=== PATIENT | female | born 1950 ===

== ENCOUNTER 2016-10-26 06:08 | Day surgery (SDC) | payer MEDICARE ==
[2016-10-26 06:54] VITALS: BMI 28.1
[2016-10-26] MEDS ORDERED: Lactated Ringer's 500 ML IV ONE ×2 (08:37)
--- NOTE | 2016-10-26 08:43 | CP.SDSHP ---
Same Day Surgery H & P - History Proposed Procedure: colonoscopy Pre-Op Diagnosis: screening for colon cancer. family h/o colon cancer - Previous Medical/Surgical History Cardiac: Hypertension, Other (hyperlipidemia, cataracts, diabetic retinopathy) Endocrine/Metabolic: Diabetes, Obesity Previous Surgical History: x 3 - Allergies Allergies: Allergies No Known Allergies Allergy (Verified 10/26/16 06:53) - Physical Exam Vital Signs: Vital Signs 10/26/16 07:12 Temperature 97.5 F L Pulse Rate 90 Respiratory 20 Rate Blood Pressure 153/60 H O2 Sat by Pulse 99 Oximetry Mental Status: Alert & Oriented x3 Neuro: WNL Heart: WNL Lungs: WNL GI: WNL - Impression Impression: screening for colon cancer. family h/o colon cancer Pt. Evaluated Today:Candidate for Anesthesia & Procedure: Yes - Date & Time Date: 10/26/16 Time: 08:43 Short Stay Discharge - Short Stay Discharge Admitting Diagnosis/Reason for Visit: CONSTIPATION / CHANGE IN BOWEL HABITS Disposition: HOME/ ROUTINE
[2016-10-26] MEDS ORDERED: Propofol 10 mg/ml Inj (20 ML) ONE (08:45)
[2016-10-26 08:49] VITALS: O2SAT 100
[2016-10-26 09:32] VITALS: TEMP 98.2
[2016-10-26 10:16] VITALS: BP 141/62
[2016-10-26 10:26] VITALS: PULSE 90; RESP 13
== END 2016-10-26 10:10 | disposition home or self-care (01) ==
LOC: C.ENDO 06:08
PROVIDERS: ATTEND Internal Medicine Gastroenterology
DX: Z12.11 Encounter for screening for malignant neoplasm of colon (principal); K62.1 Rectal polyp; K64.8 Other hemorrhoids; K57.30 Diverticulosis of large intestine without perforation or abscess without bleeding
CPT/HCPCS: 45385; 82948; 88305; J2704; J7120